=== PATIENT | male | born 1945 | race American Indian/Alaskan Native ===

== ENCOUNTER 2016-11-15 10:55 | Day surgery (SDC) | payer OTHER ==
[2016-11-11 14:15] VITALS: BMI 26.4
[2016-11-15] MEDS ORDERED: Bupivacaine HCl 0.25% PF (10 ml) Inj ONE (13:35)
[2016-11-15] MEDS ORDERED: ceFAZolin IV 1 gm in Dextrose 1 GM/50 ML BAG IVPB ONE (13:35)
[2016-11-15] MEDS ORDERED: Lidocaine 1% Inj (20ml) ONE (13:35)
[2016-11-15] MEDS ORDERED: Lactated Ringer's 1,000 ML IV ONE ×2 (13:40→14:32)
[2016-11-15] MEDS ORDERED: Midazolam 2 MG/2 ML VIAL ONE (13:43)
[2016-11-15] MEDS ORDERED: Propofol 10 mg/ml Inj (20 ML) ONE (14:05)
[2016-11-15] MEDS ORDERED: Bacitracin Ointment 30 GM TUBE ONE (14:16)
[2016-11-15] MEDS ORDERED: Lactated Ringer's 1,000 ML IV SCH (14:45)
[2016-11-15 15:42] VITALS: BP 141/95; PULSE 69; RESP 18; TEMP 97.2; O2SAT 97
[2016-11-15] MEDS ORDERED: Oxycodone/Acetaminophen 5/325 mg Tab PO PRN (16:30)
--- NOTE | 2016-11-15 18:35 | OP ---
PROCEDURE DATE: 11/15/2016 PREOPERATIVE DIAGNOSIS: Neoplasm of left ankle. POSTOPERATIVE DIAGNOSIS: Neoplasm of left ankle. PROCEDURES PERFORMED: 1. Wide deep excision (radical resection) of neoplasm left ankle 6 cm (39461). 2. Adjacent tissue transfer closure of 32 cm2 (14329). SURGEON: Sang Arnett MD TYPE OF ANESTHESIA: Local sedation. ESTIMATED BLOOD LOSS: 20 mL. POSTOPERATIVE CONDITION: Stable. INDICATIONS FOR SURGERY: This is a 71-year-old male with tumor of his left ankle who will now undergo wide deep excision. DESCRIPTION OF PROCEDURE: The patient was taken to the operating room. IV sedation was administrated and local anesthesia was administered. A generous elliptical incision was made surrounding the mass. It was dissected free to the fascial layer and removed. A perforating venous blood vessel was repaired with Prolene. The wound was irrigated with copious amounts of saline solution after further hemostasis was obtained. Generous tissue flaps were raised using the Bovie and an adjacent tissue transfer closure of 32 cm2 was performed using multiple layers of Monocryl, subcuticular Monocryl and loop. The patient tolerated the procedure well, returned to recovery room in stable condition. Sang Arnett MD
[2016-12-15] MEDS ORDERED: Propofol 10 mg/ml Inj (20 ML) ONE (15:29)
== END 2016-11-15 16:56 | disposition home or self-care (01) ==
LOC: C.SDS 10:55
PROVIDERS: ATTEND Surgery
DX: D48.1 Neoplasm of uncertain behavior of connective and other soft tissue (principal); F17.210 Nicotine dependence, cigarettes, uncomplicated
CPT/HCPCS: 14301; 27616; 88307; J0690; J2250; J2704; J3010; J7120

== ENCOUNTER 2016-12-08 10:44 | Inpatient (IN) | payer OTHER ==
[2016-12-08 10:44] VITALS: BMI 26.4
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
[2016-12-08 12:11] LABS: BASO # 0.1 K/uL (0.0-0.2); BASO % 1.1 % (0.0-2.0); EOS # 0.3 K/uL (0.0-0.7); HEMATOCRIT 38.2 % (35.0-51.0); MEAN CELL VOLUME 88.5 fL (80.0-94.0); MEAN CORPUSCULAR HEMOGLOBIN 29.8 pg (27.0-31.0); MEAN CORPUSCULAR HGB CONC 33.6 g/dL (33.0-37.0); MONO # 0.7 K/uL (0.0-0.8); MONO % 9.4 % (0.0-10.0); NRBC % 0.1 % (0.0-2.0); RED CELL DISTRIBUTION WIDTH 15.4 % (11.5-14.5)
[2016-12-08 12:20] LABS: POTASSIUM 4.2 mmol/L (3.6-5.2)
[2016-12-08 12:22] LABS: BILIRUBIN,TOTAL 0.7 mg/dL (0.2-1.3)
[2016-12-08 12:23] LABS: CALCIUM 9.1 mg/dl (8.6-10.4); TOTAL PROTEIN 8.1 g/dL (6.3-8.3)
[2016-12-08 12:31] LABS: INR 0.9
--- NOTE | 2016-12-08 14:03 | RAD ---
HISTORY: SOB COMPARISON: No prior. TECHNIQUE: Chest PA and lateral FINDINGS: LUNGS: Reticular markings are prominent in the apices compatible with pulmonary fibrosis. No alveolitis is appreciated bilaterally. PLEURA: No significant pleural effusion identified. No pneumothorax apparent. CARDIOVASCULAR: Normal. OSSEOUS STRUCTURES: No significant abnormalities. VISUALIZED UPPER ABDOMEN: Normal. OTHER FINDINGS: None. IMPRESSION: No acute infiltrate or pleural effusion bilaterally. Likely chronic interstitial pulmonary changes seen the bilateral apices. Clinically correlate.
[2016-12-08] MEDS ORDERED: Lactated Ringer's 1,000 ML IV ONE ×2 (18:15)
[2016-12-08] MEDS ORDERED: Midazolam 2 MG/2 ML VIAL ONE (18:20)
[2016-12-08] MEDS ORDERED: Propofol 10 mg/ml Inj (20 ML) ONE (18:20)
[2016-12-08] MEDS ORDERED: ceFAZolin IV 2 gm in Dextrose 1 GM/50 ML BAG IVPB ONE (18:21)
[2016-12-08] MEDS ORDERED: Lidocaine 1% Inj (20ml) ONE (18:21)
[2016-12-08] MEDS ORDERED: Bupivacaine HCl 0.25% PF (10 ml) Inj ONE (18:21)
[2016-12-08] MEDS ORDERED: HYDROmorphone 0.5 mg/0.5 ml ISec IVP PRN (18:54)
--- NOTE | 2016-12-08 23:25 | CP.PCM.HP ---
History of Present Illness - History of Present Illness History of Present Illness: CONSULT for medical management of chronically sick pateint Reason for admission: left ankle wound s/p debribement 71 y/o male well known to me with h/o HTN, anxiety, alcoholism, COPD who is non complaint with his diet, medication , follow up was sent in by Dr. Arnett after the sutures popped out of his left ankle. Patient had surgery the beginning of the month on the left ankle for an ulcer. Patient notes eating this morning. Patient is refusing to answer any of the questions asked. 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 Past Patient History - Infectious Disease Hx of Infectious Diseases: None - Past Medical History & Family History Past Medical History?: Yes - Past Social History Smoking Status: Heavy Smoker > 10 Cigarettes Daily - CARDIAC Hx Hypertension: Yes (no medication) - PULMONARY Hx Chronic Obstructive Pulmonary Disease (COPD): Yes - NEUROLOGICAL Hx Neurological Disorder: No - HEENT Hx HEENT Problems: No - RENAL Hx Chronic Kidney Disease: No - ENDOCRINE/METABOLIC Hx Endocrine Disorders: No - HEMATOLOGICAL/ONCOLOGICAL Hx Blood Disorders: No - INTEGUMENTARY Hx Dermatological Problems: Yes (small ulcer left ankle) - MUSCULOSKELETAL/RHEUMATOLOGICAL Hx Falls: No - GASTROINTESTINAL Hx Gastrointestinal Disorders: No - GENITOURINARY/GYNECOLOGICAL Hx Genitourinary Disorders: No - PSYCHIATRIC Hx Substance Use: No - ANESTHESIA Hx Anesthesia: Yes Hx Anesthesia Reactions: No Hx Malignant Hyperthermia: No Meds Allergies/Adverse Reactions: Allergies Allergy/AdvReac Type Severity Reaction Status Date / Time No Known Allergies Allergy Verified 11/12/14 11:44 Results - Vital Signs Recent Vital Signs: Last Vital Signs Temp 98.1 F 12/08/16 20:32 Pulse 69 12/08/16 21:01 Resp 20 12/08/16 20:32 BP 132/77 12/08/16 20:32 Pulse Ox 96 12/08/16 21:01 - Labs Result Diagrams: 12/08/16 12:03 12/08/16 12:03 Labs: Laboratory Results - last 24 hr 12/08/16 12/08/16 12/08/16 12:00 12:03 12:03 WBC 7.0 RBC 4.31 L Hgb 12.8 Hct 38.2 MCV 88.5 MCH 29.8 MCHC 33.6 RDW 15.4 H Plt Count 200 MPV 8.0 Neut % (Auto) 57.5 Lymph % (Auto) 28.0 [place] % (Auto) 9.4 Eos % (Auto) 4.0 Baso % (Auto) 1.1 Neut # 4.0 Lymph # 2.0 [place] # 0.7 Eos # 0.3 Baso # 0.1 PT 10.7 INR 0.9 Sodium Potassium Chloride Carbon Dioxide Anion Gap BUN Creatinine Est GFR ( Amer) Est GFR (Non-Af Amer) POC Glucose (mg/dL) 130 H Random Glucose Calcium Total Bilirubin AST ALT Alkaline Phosphatase Total Protein Albumin Globulin Albumin/Globulin Ratio 12/08/16 12:03 WBC RBC Hgb Hct MCV MCH MCHC RDW Plt Count MPV Neut % (Auto) Lymph % (Auto) [place] % (Auto) Eos % (Auto) Baso % (Auto) Neut # Lymph # [place] # Eos # Baso # PT INR Sodium 134 Potassium 4.2 Chloride 97 L Carbon Dioxide 31 H Anion Gap 10 BUN 33 H Creatinine 1.6 H Est GFR ( Amer) 52 Est GFR (Non-Af Amer) 43 POC Glucose (mg/dL) Random Glucose 104 Calcium 9.1 Total Bilirubin 0.7 AST 31 ALT 32 Alkaline Phosphatase 83 Total Protein 8.1 Albumin 4.1 Globulin 4.0 H Albumin/Globulin Ratio 1.0
[2016-12-09] MEDS: ceFAZolin IV 1 gm in Dextrose 1 GM/50 ML BAG IVPB SCH ×3 (02:32→17:52)
[2016-12-09] MEDS: Enoxaparin 30 mg Syringe SC SCH (10:58)
[2016-12-09] MEDS: Oxycodone/Acetaminophen 5/325 mg Tab PO PRN ×2 (11:17→22:09)
--- NOTE | 2016-12-09 22:32 | CP.PCM.CON ---
Past Patient History - Infectious Disease Hx of Infectious Diseases: None - Past Medical History & Family History Past Medical History?: Yes - Past Social History Smoking Status: Heavy Smoker > 10 Cigarettes Daily - CARDIAC Hx Hypertension: Yes (no medication) - PULMONARY Hx Chronic Obstructive Pulmonary Disease (COPD): Yes - NEUROLOGICAL Hx Neurological Disorder: No - HEENT Hx HEENT Problems: No - RENAL Hx Chronic Kidney Disease: No - ENDOCRINE/METABOLIC Hx Endocrine Disorders: No - HEMATOLOGICAL/ONCOLOGICAL Hx Blood Disorders: No - INTEGUMENTARY Hx Dermatological Problems: Yes (small ulcer left ankle) - MUSCULOSKELETAL/RHEUMATOLOGICAL Hx Falls: No - GASTROINTESTINAL Hx Gastrointestinal Disorders: No - GENITOURINARY/GYNECOLOGICAL Hx Genitourinary Disorders: No - PSYCHIATRIC Hx Substance Use: No - ANESTHESIA Hx Anesthesia: Yes Hx Anesthesia Reactions: No Hx Malignant Hyperthermia: No Meds Allergies/Adverse Reactions: Allergies Allergy/AdvReac Type Severity Reaction Status Date / Time No Known Allergies Allergy Verified 11/12/14 11:44 - Medications Medications: Current Medications Enoxaparin Sodium (Lovenox) 30 mg SC DAILY [facility] Last Admin: 12/09/16 10:58 Dose: 30 mg Cefazolin Sodium/Dextrose (Ancef Iv 1 Gm Duplex) 1 gm in 50 mls @ 100 mls/hr IVPB Q8H [facility] Last Admin: 12/09/16 17:52 Dose: 100 mls/hr Oxycodone/Acetaminophen (Percocet 5/325 Mg Tab) 2 tab PO Q4H PRN PRN Reason: Pain Stop: 12/11/16 19:22 Last Admin: 12/09/16 22:09 Dose: 2 tab Pneumococcal Polyvalent Vaccine (Pneumovax 23 Vaccine) 0.5 ml IM .ONCE ONE Stop: 12/10/16 10:01 Results - Vital Signs Recent Vital Signs: Last Vital Signs Temp 98.2 F 12/09/16 16:00 Pulse 73 12/09/16 16:00 Resp 20 12/09/16 16:00 BP 129/79 12/09/16 16:00 Pulse Ox 95 12/09/16 16:00 - Labs Result Diagrams: 12/08/16 12:03 12/08/16 12:03
--- NOTE | 2016-12-09 23:01 | CARD ---
APPROVED REPORT EKG Measurement Heart [id number] <Conclusion> Normal sinus rhythm Nonspecific T wave abnormality Abnormal ECG
--- NOTE | 2016-12-10 02:22 | OP ---
PROCEDURE DATE: 12/08/2016 PREOPERATIVE DIAGNOSIS: Abscess and cellulitis of the left ankle. POSTOPERATIVE DIAGNOSIS: Abscess and cellulitis of the left ankle. PROCEDURES PERFORMED: 1. Incision and drainage of deep abscess of left ankle (27454). 2. Repair of perforating vein blood vessel (33071). 3. Partial tissue transfer closure (25390). SURGEON: Sang Arnett MD TYPE OF ANESTHESIA: General. ESTIMATED BLOOD LOSS: 50 mL. POSTOPERATIVE CONDITION: Stable. INDICATIONS FOR SURGERY: This is a 71-year-old male presented after undergoing an excision of tumor of his left ankle. He developed subsequent wound infection and dehiscence and was somewhat loss the followup; however, came to my office nearly 1 month later with a badly infected ankle. He is now taken to the operating room for debridement and drainage of an undrained abscess. DESCRIPTION OF PROCEDURE: The patient was taken to the operating room, general anesthesia was administered and the left ankle was prepped and draped. The previous open wound was debrided and an incision was made deeper and pus was drained deep within the ankle. There was bleeding noted from perforating vein, which is fairly vigorous. This was repaired with the 5-0 Prolene suture until hemostatic and blood flow was restored in the vein. The wound was then pulse irrigated with saline and Kantrex solution. Partial tissue transfer closure of the dehisced wound was performed by mobilizing and using advanced flaps on periphery totalling approximately 7 cm2. Dissected portion was packed open with wet saline gauze and dressed sterilely. The patient tolerated procedure well. Returned to recovery room in stable condition. Sang Arnett MD
[2016-12-10] MEDS: ceFAZolin IV 1 gm in Dextrose 1 GM/50 ML BAG IVPB SCH ×2 (02:24→10:00)
[2016-12-10] MEDS ORDERED: Influenza Vaccine 60 mcg/0.5 mL SYR (4YR UP) IM ONE (10:00)
[2016-12-10] MEDS ORDERED: Pneumococcal 23-Valent Vaccine IM ONE (10:00)
[2016-12-10] MEDS: Enoxaparin 30 mg Syringe SC SCH (11:59)
[2016-12-10] MEDS ORDERED: Lactated Ringer's 1,000 ML IV ONE (16:33)
[2016-12-10] MEDS ORDERED: Midazolam 2 MG/2 ML VIAL ONE (16:35)
[2016-12-10] MEDS ORDERED: Propofol 10 mg/ml Inj (20 ML) ONE ×2 (16:36)
[2016-12-10] MEDS ORDERED: DiphenhydrAMINE 50 mg/ml Inj IVP PRN (16:42)
[2016-12-10] MEDS ORDERED: HYDROmorphone 0.5 mg/0.5 ml ISec IVP PRN (16:42)
[2016-12-10 18:18] VITALS: BP 143/101; PULSE 66; RESP 13; TEMP 97.6; O2SAT 95
--- NOTE | 2016-12-10 23:25 | CP.PCM.DIS ---
Provider - Provider Date of Admission: 12/08/16 19:47 Attending physician: Sang Arnett MD Hospital Course - Lab Results Lab Results: Micro Results 12/08/16 19:10 Ankle - Left Gram Stain - Final 12/08/16 19:10 Ankle - Left Wound Culture - Final Klebsiella Pneumoniae Ssp Pneu Most Recent Lab Values WBC 7.0 K/uL (4.8-10.8) 12/08/16 12:03 RBC 4.31 Mil/uL (4.40-5.90) L 12/08/16 12:03 Hgb 12.8 g/dL (12.0-18.0) 12/08/16 12:03 Hct 38.2 % (35.0-51.0) 12/08/16 12:03 MCV 88.5 fL (80.0-94.0) 12/08/16 12:03 MCH 29.8 pg (27.0-31.0) 12/08/16 12:03 MCHC 33.6 g/dL (33.0-37.0) 12/08/16 12:03 RDW 15.4 % (11.5-14.5) H 12/08/16 12:03 Plt Count 200 K/uL (130-400) 12/08/16 12:03 MPV 8.0 fL (7.2-11.7) 12/08/16 12:03 Neut % (Auto) 57.5 % (50.0-75.0) 12/08/16 12:03 Lymph % (Auto) 28.0 % (20.0-40.0) 12/08/16 12:03 [place] % (Auto) 9.4 % (0.0-10.0) 12/08/16 12:03 Eos % (Auto) 4.0 % (0.0-4.0) 12/08/16 12:03 Baso % (Auto) 1.1 % (0.0-2.0) 12/08/16 12:03 Neut # 4.0 K/uL (1.8-7.0) 12/08/16 12:03 Lymph # 2.0 K/uL (1.0-4.3) 12/08/16 12:03 [place] # 0.7 K/uL (0.0-0.8) 12/08/16 12:03 Eos # 0.3 K/uL (0.0-0.7) 12/08/16 12:03 Baso # 0.1 K/uL (0.0-0.2) 12/08/16 12:03 PT 10.7 SECONDS (9.7-12.2) 12/08/16 12:03 INR 0.9 12/08/16 12:03 Sodium 134 mmol/L (132-148) 12/08/16 12:03 Potassium 4.2 mmol/L (3.6-5.2) 12/08/16 12:03 Chloride 97 mmol/L (98-107) L 12/08/16 12:03 Carbon Dioxide 31 mmol/L (22-30) H 12/08/16 12:03 Anion Gap 10 (10-20) 12/08/16 12:03 BUN 33 mg/dL (9-20) H 12/08/16 12:03 Creatinine 1.6 mg/dL (0.8-1.5) H 12/08/16 12:03 Est GFR ( Amer) 52 12/08/16 12:03 Est GFR (Non-Af Amer) 43 12/08/16 12:03 POC Glucose (mg/dL) 130 mg/dL (65-110) H 12/08/16 12:00 Random Glucose 104 mg/dL (75-110) 12/08/16 12:03 Calcium 9.1 mg/dl (8.6-10.4) 12/08/16 12:03 Total Bilirubin 0.7 mg/dL (0.2-1.3) 12/08/16 12:03 AST 31 U/L (17-59) 12/08/16 12:03 ALT 32 U/L (21-72) 12/08/16 12:03 Alkaline Phosphatase 83 U/L (38-126) 12/08/16 12:03 Total Protein 8.1 g/dL (6.3-8.3) 12/08/16 12:03 Albumin 4.1 g/dL (3.5-5.0) 12/08/16 12:03 Globulin 4.0 gm/dL (2.2-3.9) H 12/08/16 12:03 Albumin/Globulin Ratio 1.0 (1.0-2.1) 12/08/16 12:03 - Hospital Course Hospital Course: Pt is for discharge today Discharge Plan - Follow Up Plan Condition: STABLE Disposition: HOME/ ROUTINE Instructions: Cefadroxil (By mouth), Cellulitis (DC), Chronic Wound Care (DC), Abscess (GEN), Incision and Drainage (DC) Referrals: Sang Arnett MD [Staff Provider] -
--- NOTE | 2016-12-16 00:46 | OP ---
PROCEDURE DATE: 12/10/2016 PREOPERATIVE DIAGNOSIS: Abscess and cellulitis with open ulcer of the left ankle. POSTOPERATIVE DIAGNOSIS: Abscess and cellulitis with open ulcer of the left ankle. PROCEDURES PERFORMED: 1. Debridement of ulcer of the left ankle including skin, subcutaneous tissue, and muscle (74142). 2. Repair of perforating vein blood vessel (95762). 3. Adjacent tissue transfer closure,10 to 20 cm sq (15444). SURGEON: Sang Arnett MD TYPE OF ANESTHESIA: General. ESTIMATED BLOOD LOSS: 50 mL. POSTOPERATIVE CONDITION: Stable. INDICATIONS FOR SURGERY: This is a 71-year-old male who presented with a nonhealing ulcer of the leg. He subsequently has undergone debridements and also an incision and drainage of an ankle abscess yesterday. He was taken back to the operating room today for possible placement of Dermagraft along with re-debridement and change of his packing under anesthesia. GROSS FINDINGS: The wound had not healed enough yet for a Dermagraft. Instead of re-debridement, it was carried on along with a pulse irrigation. A bleeding perforating vein blood vessel again had to be repaired and a greater sized tissue transfer closure was performed today in order to close the wound. DESCRIPTION OF PROCEDURE: The patient was taken to the operating room, general anesthesia was administered. The left ankle was prepped and draped. The medial ulcer was sharply debrided through skin, subcutaneous tissue, muscle, and bone. Cultures were retaken maneuver, a perforating vein blood vessel, which had bled at yesterday's procedure again began to bleed and was mobilized and repaired again with Prolene. Transverse tissue flap on the periphery and an advancement flap closure of approximately 15 square centimeters was performed using multiple layers of Monocryl. Central portion almost packed of [id number] gauze. The patient tolerated the procedure well and returned to recovery room in stable condition. Sang Arnett MD
== END 2016-12-10 19:39 | disposition home or self-care (01) | DRG 857 ==
LOC: C.ER 10:44 → C.3T 11:33 → C.SDS 11:52 → OBSVTOIN 19:47
PROVIDERS: ADMIT Surgery; ATTEND Surgery
PROC: 0HXNXZZ Transfer Left Foot Skin, External Approach (ICD-10-PCS; 2016-12-08)
PROC: 0H9NXZZ Drainage of Left Foot Skin, External Approach (ICD-10-PCS; principal; 2016-12-08 15:00)
DX: T81.4XXA Infection following a procedure, initial encounter (principal); L97.329 Non-pressure chronic ulcer of left ankle with unspecified severity; T81.31XA Disruption of external operation (surgical) wound, not elsewhere classified, initial encounter; L02.612 Cutaneous abscess of left foot; J44.9 Chronic obstructive pulmonary disease, unspecified; I10 Essential (primary) hypertension; M19.90 Unspecified osteoarthritis, unspecified site; F41.9 Anxiety disorder, unspecified; F10.20 Alcohol dependence, uncomplicated; Z91.14 Patient's other noncompliance with medication regimen; Z91.11 Patient's noncompliance with dietary regimen; F17.210 Nicotine dependence, cigarettes, uncomplicated; Y83.8 Other surgical procedures as the cause of abnormal reaction of the patient, or of later complication, without mention of misadventure at the time of the procedure; B96.1 Klebsiella pneumoniae [K. pneumoniae] as the cause of diseases classified elsewhere

== ENCOUNTER 2016-12-15 10:33 | Day surgery (SDC) | payer OTHER ==
[2016-12-15 10:33] VITALS: BMI 26.4
[2016-12-15] MEDS ORDERED: Dextrose 5%/0.45% NS 1,000 ML IV ONE (11:03)
[2016-12-15 11:25] LABS: BASO # 0.1 K/uL (0.0-0.2); EOS # 0.3 K/uL (0.0-0.7); EOS % 5.3 % (0.0-4.0); HEMOGLOBIN 13.4 g/dL (12.0-18.0); LYMPH # 2.1 K/uL (1.0-4.3); LYMPH % 34.3 % (20.0-40.0); MEAN CORPUSCULAR HEMOGLOBIN 29.3 pg (27.0-31.0); MEAN CORPUSCULAR HGB CONC 32.9 g/dL (33.0-37.0); MEAN PLATELET VOLUME 7.6 fL (7.2-11.7); MONO # 0.6 K/uL (0.0-0.8); MONO % 9.3 % (0.0-10.0); NEUT % 50.1 % (50.0-75.0); NRBC % 0.1 % (0.0-2.0); RBC 4.56 Mil/uL (4.40-5.90); RED CELL DISTRIBUTION WIDTH 15.8 % (11.5-14.5)
[2016-12-15 11:32] LABS: PROTHROMBIN TIME 11.7 SECONDS (9.7-12.2)
[2016-12-15 11:39] LABS: ALBUMIN 4.3 g/dL (3.5-5.0)
[2016-12-15 11:42] LABS: ALT/SGPT 33 U/L (21-72); AST/SGOT 30 U/L (17-59); BLOOD UREA NITROGEN 19 mg/dL (9-20); CALCIUM 9.3 mg/dl (8.6-10.4); GFR AFRICAN-AMERICAN > 60; GFR NON-AFRICAN AMERICAN > 60
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
[2016-12-15] MEDS ORDERED: Lactated Ringer's 1,000 ML IV ONE (15:40)
[2016-12-15] MEDS: Vancomycin 1 gm/D5W 200 ml 1 GM/200 ML BAG IVPB ONE ×2 (15:40→15:50)
[2016-12-15] MEDS ORDERED: Midazolam 2 MG/2 ML VIAL ONE (15:47)
[2016-12-15] MEDS ORDERED: Oxycodone/Acetaminophen 5/325 mg Tab PO PRN (16:26)
--- NOTE | 2016-12-15 16:29 | RAD ---
HISTORY: r/o infiltrate COMPARISON: Chest radiographs 12/08/2016. TECHNIQUE: Chest PA and lateral FINDINGS: LUNGS: No definite airspace disease appreciate this time with interstitial pulmonary disease again seen bilaterally. Emphysematous changes are questioned at the medial left greater than right apex. PLEURA: No significant pleural effusion identified. No pneumothorax apparent. CARDIOVASCULAR: Cardiac size remains normal. Mild prominence of the pulmonary arteries is again appreciate centrally with peripheral diminished suggesting pulmonary artery hypertension. Clinically correlate further. OSSEOUS STRUCTURES: No significant abnormalities. VISUALIZED UPPER ABDOMEN: Normal. OTHER FINDINGS: None. IMPRESSION: No definitive airspace disease appreciate this time with interstitial pulmonary fibrosis again appreciated. No interval pneumothorax or cardiomegaly.
--- NOTE | 2016-12-15 20:42 | OP ---
PROCEDURE DATE: 12/15/2016 PREOPERATIVE DIAGNOSIS: Nonhealing ulcer of the left ankle. POSTOPERATIVE DIAGNOSIS: Nonhealing ulcer of the left ankle. PROCEDURES PERFORMED: 1. Re-debridement of left ankle ulcer, skin, subcutaneous tissue and muscle (48089). 2. Repair of perforating vein of left ankle (30528). 3. Adjacent tissue transfer closure, 20 to 30 sq cm (11729). HISTORY OF PRESENT ILLNESS: This is a 71-year-old male who had undergone several debridements of his left ankle along with pulse irrigation and it was noted to be healing. The patient did not want to stay in hospital this weekend; however, he was discharged, instructed to follow up 2 days ago; however, the patient was lost to follow up until today. He has had the same dressing for the past 5 or 6 days. He is taken back to the OR for re-debridement, possible placement of a Dermagraft. GROSS FINDINGS: The wound was not amenable to Dermagraft, some of the infection had re-occurred and the wound had to be again debrided and cleaned with plans for Dermagraft in the near future. SURGEON: Sang Arnett MD DESCRIPTION OF PROCEDURE: The patient was taken to the operating room, general anesthesia was administered and the left ankle was prepped and draped. The left ankle ulcer was debrided with skin, subcutaneous tissue and muscle. Bleeding was controlled using the Bovie. A perforating vein blood vessel was again noted to be bleeding and again was mobilized, repaired using Prolene. The wound was then pulse irrigated with saline and Kantrex solution until clean. An adjacent tissue transfer closure was performed at the periphery by mobilizing and using multiple layers of subcuticular Monocryl, approximately 25 sq cm closure was performed. The central portion was packed up with saline gauze. The patient tolerated the procedure well, returned to recovery room in stable condition. Sang Arnett MD
[2016-12-15] MEDS: Dextrose 5%/0.45% NS 1,000 ML IV SCH (21:48)
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
[2016-12-16] MEDS: Dextrose 5%/0.45% NS 1,000 ML IV SCH ×2 (03:00→12:15)
[2016-12-16] MEDS: Pneumococcal 23-Valent Vaccine IM ONE ×2 (09:17→09:21)
[2016-12-16] MEDS ORDERED: Vancomycin 1 gm/D5W 200 ml 1 GM/200 ML BAG IVPB ONE (14:05)
[2016-12-16] MEDS ORDERED: Midazolam 2 MG/2 ML VIAL ONE (14:10)
[2016-12-16] MEDS ORDERED: Propofol 10 mg/ml Inj (20 ML) ONE (14:10)
[2016-12-16] MEDS ORDERED: Lidocaine Hydrochloride 10 ML INJ ONE (14:12)
[2016-12-16] MEDS ORDERED: Lactated Ringer's 1,000 ML IV ONE (14:15)
[2016-12-16] MEDS ORDERED: Lidocaine 1% Inj (20ml) ONE (14:28)
[2016-12-16] MEDS ORDERED: Sodium Chloride 0.9% 1,000 ML IV ONE (14:45)
[2016-12-16] MEDS ORDERED: HYDROmorphone 0.5 mg/0.5 ml ISec IVP PRN (14:46)
--- NOTE | 2016-12-16 16:09 | OP ---
PROCEDURE DATE: 12/16/2016 PREOPERATIVE DIAGNOSIS: Nonhealing wound of the left ankle. POSTOPERATIVE DIAGNOSIS: Nonhealing wound of the left ankle. PROCEDURES PERFORMED: 1. Debridement of acellular dermal allograft, it is (57339). 2. Repair of perforating vein blood vessel (56370). 3. Adjacent tissue transfer closure, 20 to 30 sq cm (20503). INDICATIONS FOR SURGERY: This is a 71-year-old male with a nonhealing wound of his ankle which began as an abscess, so he required intensive treatment including multiple debridements in the operating room. It is now small products i assembler to the point where an acellular dermal allograft can be placed. PROCEDURE: The patient was taken to the operating room, general anesthesia was administered and the left ankle was prepped and draped. The left ankle ulcer was again sharply debrided and bleeding was controlled using the Bovie. A expose vein which had been repaired previously again was bleeding and needed to again mobilized and repaired with Prolene. The wound was then pulse irrigated with saline solution along the periphery advancement flaps were raised by using the Bovie and adjacent tissue transfer closure of 25 sq cm that was performed periphery. The central portion of wound was then covered using a Dermagraft and stapled in place. The wound was dressed sterilely. The patient tolerated the procedure well, returned to recovery room in stable condition. Sang Arnett MD
[2016-12-16 16:26] VITALS: BP 133/84; PULSE 68; RESP 17; TEMP 97.3; O2SAT 97
--- NOTE | 2016-12-16 22:52 | CP.PCM.DIS ---
Provider - Provider Date of Admission: 12/15/16 16:27 Attending physician: Sang Arnett MD Time Spent in preparation of Discharge (in minutes): 30 Hospital Course - Lab Results Lab Results: Micro Results 12/15/16 16:30 Ankle - Left Gram Stain - Final Most Recent Lab Values WBC 6.0 K/uL (4.8-10.8) 12/15/16 11:20 RBC 4.56 Mil/uL (4.40-5.90) 12/15/16 11:20 Hgb 13.4 g/dL (12.0-18.0) 12/15/16 11:20 Hct 40.6 % (35.0-51.0) 12/15/16 11:20 MCV 89.0 fL (80.0-94.0) 12/15/16 11:20 MCH 29.3 pg (27.0-31.0) 12/15/16 11:20 MCHC 32.9 g/dL (33.0-37.0) L 12/15/16 11:20 RDW 15.8 % (11.5-14.5) H 12/15/16 11:20 Plt Count 227 K/uL (130-400) 12/15/16 11:20 MPV 7.6 fL (7.2-11.7) 12/15/16 11:20 Neut % (Auto) 50.1 % (50.0-75.0) 12/15/16 11:20 Lymph % (Auto) 34.3 % (20.0-40.0) 12/15/16 11:20 Mineral % (Auto) 9.3 % (0.0-10.0) 12/15/16 11:20 Eos % (Auto) 5.3 % (0.0-4.0) H 12/15/16 11:20 Baso % (Auto) 1.0 % (0.0-2.0) 12/15/16 11:20 Neut # 3.0 K/uL (1.8-7.0) 12/15/16 11:20 Lymph # 2.1 K/uL (1.0-4.3) 12/15/16 11:20 Mineral # 0.6 K/uL (0.0-0.8) 12/15/16 11:20 Eos # 0.3 K/uL (0.0-0.7) 12/15/16 11:20 Baso # 0.1 K/uL (0.0-0.2) 12/15/16 11:20 PT 11.7 SECONDS (9.7-12.2) 12/15/16 11:20 INR 1.0 12/15/16 11:20 APTT 38 SECONDS (21-34) H 12/15/16 11:20 Sodium 136 mmol/L (132-148) 12/15/16 11:20 Potassium 4.1 mmol/L (3.6-5.2) 12/15/16 11:20 Chloride 103 mmol/L (98-107) 12/15/16 11:20 Carbon Dioxide 24 mmol/L (22-30) 12/15/16 11:20 Anion Gap 13 (10-20) 12/15/16 11:20 BUN 19 mg/dL (9-20) 12/15/16 11:20 Creatinine 0.9 mg/dL (0.8-1.5) 12/15/16 11:20 Est GFR ( Amer) > 60 12/15/16 11:20 Est GFR (Non-Af Amer) > 60 12/15/16 11:20 Random Glucose 86 mg/dL (75-110) 12/15/16 11:20 Calcium 9.3 mg/dl (8.6-10.4) 12/15/16 11:20 Total Bilirubin 0.8 mg/dL (0.2-1.3) 12/15/16 11:20 AST 30 U/L (17-59) 12/15/16 11:20 ALT 33 U/L (21-72) 12/15/16 11:20 Alkaline Phosphatase 76 U/L (38-126) 12/15/16 11:20 Total Protein 8.7 g/dL (6.3-8.3) H 12/15/16 11:20 Albumin 4.3 g/dL (3.5-5.0) 12/15/16 11:20 Globulin 4.4 gm/dL (2.2-3.9) H 12/15/16 11:20 Albumin/Globulin Ratio 1.0 (1.0-2.1) 12/15/16 11:20 Discharge Exam - Head Exam Head Exam: ATRAUMATIC, NORMAL INSPECTION, NORMOCEPHALIC - Eye Exam Eye Exam: Normal appearance - Respiratory Exam Respiratory Exam: Clear to PA & Lateral, NORMAL BREATHING PATTERN - Cardiovascular Exam Cardiovascular Exam: +S1, +S2 - GI/Abdominal Exam GI & Abdominal Exam: Normal Bowel Sounds Discharge Plan - Follow Up Plan Condition: STABLE Disposition: HOME/ ROUTINE Instructions: Wound Infection (DC), Heart Healthy Diet (DC), Debridement (DC) Additional Instructions: SEE POST OPERATIVE INSTRUCTIONS Referrals: Sang Arnett MD [Staff Provider] -
== END 2016-12-16 16:25 | disposition home or self-care (01) ==
LOC: C.ER 10:33 → C.SDS 11:38 → C.9S 16:27 → UNDOADMIN 16:27 → C.6T 21:21 → C.9S 21:21 → C.SDS 12-16 16:25 → UNDODISIN 12-16 16:25
PROVIDERS: ATTEND Surgery
PROC: 0KBT0ZZ Excision of Left Lower Leg Muscle, Open Approach (ICD-10-PCS; 2016-12-15)
PROC: 0HRNXK3 Replacement of Left Foot Skin with Nonautologous Tissue Substitute, Full Thickness, External Approach (ICD-10-PCS; 2016-12-16)
PROC: 0HXLXZZ Transfer Left Lower Leg Skin, External Approach (ICD-10-PCS; 2016-12-16)
PROC: 0YBL0ZZ Excision of Left Ankle Region, Open Approach (ICD-10-PCS; principal; 2016-12-16 13:30)
DX: L97.329 Non-pressure chronic ulcer of left ankle with unspecified severity (principal); J44.9 Chronic obstructive pulmonary disease, unspecified; I10 Essential (primary) hypertension; F17.210 Nicotine dependence, cigarettes, uncomplicated
CPT/HCPCS: 14021; 15002; 15271; 71020; 80053; 85025; 85610; 85730; 87070; 87181; 99285; C9113; J2250; J2704; J3010; J3370; J7040; J7042; J7120; Q4116

== ENCOUNTER 2016-12-26 18:27 | Emergency (ER) | payer OTHER ==
[2016-12-26 18:27] VITALS: BMI 26.4
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
[2016-12-26] MEDS ORDERED: ceFAZolin 1 gm FROZEN Premix 1 GM/50 ML ML IVPB ONE (20:01)
[2016-12-26 20:09] LABS: BASO # 0.1 K/uL (0.0-0.2); BASO % 1.1 % (0.0-2.0); EOS # 0.2 K/uL (0.0-0.7); EOS % 3.6 % (0.0-4.0); HEMATOCRIT 39.6 % (35.0-51.0); LYMPH # 2.3 K/uL (1.0-4.3); LYMPH % 35.4 % (20.0-40.0); MEAN CELL VOLUME 89.2 fL (80.0-94.0); MEAN CORPUSCULAR HEMOGLOBIN 29.9 pg (27.0-31.0); MEAN CORPUSCULAR HGB CONC 33.5 g/dL (33.0-37.0); MEAN PLATELET VOLUME 7.9 fL (7.2-11.7); MONO # 0.5 K/uL (0.0-0.8); MONO % 7.1 % (0.0-10.0); RED CELL DISTRIBUTION WIDTH 15.8 % (11.5-14.5); WHITE BLOOD COUNT 6.5 K/uL (4.8-10.8)
[2016-12-26 20:15] LABS: CHLORIDE 102 mmol/L (98-107); POTASSIUM 4.1 mmol/L (3.6-5.2); SODIUM 137 mmol/L (132-148)
[2016-12-26 20:18] LABS: BLOOD UREA NITROGEN 15 mg/dL (9-20); CALCIUM 8.4 mg/dl (8.6-10.4); CARBON DIOXIDE 26 mmol/L (22-30); GFR AFRICAN-AMERICAN > 60; GLUCOSE,RANDOM 87 mg/dL (75-110)
[2016-12-26 20:32] LABS: VENOUS BLOOD GAS PCO2 48 mmHg (40-60)
[2016-12-26 20:45] VITALS: BP 149/90; PULSE 86; RESP 18; TEMP 98; O2SAT 97
== END 2016-12-26 20:43 | disposition home or self-care (01) ==
LOC: C.ER 18:27
DX: L97.329 Non-pressure chronic ulcer of left ankle with unspecified severity (principal); I10 Essential (primary) hypertension; F17.210 Nicotine dependence, cigarettes, uncomplicated
CPT/HCPCS: 80048; 82803; 85025; 96365; 99284; J0690

== ENCOUNTER 2017-08-15 10:54 | Emergency (ER) | payer OTHER ==
[2017-08-15 10:54] VITALS: BMI 26.4
[2017-08-15 11:05] VITALS: BP 144/101; PULSE 92; RESP 16; TEMP 98; O2SAT 99
[2017-08-15] MEDS ORDERED: Oxycodone/Acetaminophen 5/325 mg Tab PO STA (11:26)
[2017-08-15] MEDS ORDERED: Lidocaine 5% Patch TD STA (11:26)
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
[2017-08-15] MEDS ORDERED: Lidocaine 5% Patch TD ONE (11:39)
[2017-08-15] MEDS ORDERED: Oxycodone/Acetaminophen 5/325 mg Tab ONE (11:39)
== END 2017-08-15 12:00 | disposition home or self-care (01) ==
LOC: C.ER 10:54
DX: M62.830 Muscle spasm of back (principal); T14.8XXA Other injury of unspecified body region, initial encounter; W23.0XXA Caught, crushed, jammed, or pinched between moving objects, initial encounter; I10 Essential (primary) hypertension; Z72.0 Tobacco use
CPT/HCPCS: 96372; 99283; J1885

== ENCOUNTER 2018-04-07 12:46 | Outpatient (CLI) | payer OTHER | END 2018-04-07 12:47 | disposition home or self-care (01) | LOC: C.RADH 12:46 ==

== ENCOUNTER 2018-04-27 12:08 | Outpatient (CLI) | payer OTHER | END 2018-04-27 12:09 | disposition home or self-care (01) | LOC: C.VASC 12:08 | DX: I82.402 Acute embolism and thrombosis of unspecified deep veins of left lower extremity (principal) ==